=== PATIENT | female | born 1990 | race African-American/Black ===

== ENCOUNTER 2017-12-05 22:10 | Emergency (ER) | payer MEDICAID ==
[~2017-12-05] VITALS: Ht 149.9 cm; Wt 60.0 kg
[2017-12-05 22:12] VITALS: BP 117/66
[2017-12-05] MEDS ORDERED: HYDROcodone/APAP 5/325 TABLET ONE (22:37)
[2017-12-05 22:46] LABS: MICROSCOPIC AUTO
[2017-12-05 22:51] LABS: CULTURE INDICATED? YES
[2017-12-05] MEDS ORDERED: HYDROcodone/APAP 5/325 TABLET PO ONE (23:00)
[2017-12-05 23:02] LABS: MEAN CORPUSCULAR HEMOGLOBIN 23.3 pg (27.0-34.8); MEAN CORPUSCULAR HGB CONC 31.4 g/dL (32.4-35.8); MEAN CORPUSCULAR VOLUME 74.2 fL (80-100); PLATELET COUNT 409 x10^3/uL (130-400); RED BLOOD COUNT 4.47 x10^6/uL (3.82-5.3); RED CELL DISTRIBUTION WIDTH 18.6 % (9.6-15.2)
[2017-12-05 23:06] LABS: MD YES
[2017-12-05 23:09] LABS: ALBUMIN 3.6 g/dL (3.4-5.0); ANION GAP 7 mmol/L (5-15); CALCIUM 8.8 mg/dL (8.5-10.1); CHLORIDE 109 mmol/L (98-107)
[2017-12-05 23:14] LABS: CREATININE 0.72 mg/dL (0.55-1.02)
[2017-12-05 23:22] LABS: EOS#(MANUAL) 0.13 x10^3/uL (0.0-0.4); EOS% (MANUAL) 2 % (1-7); LYMPHS% (MANUAL) 46 % (22-44); MONOS#(MANUAL) 0.63 x10^3/uL (0.3-2.7); MONOS% (MANUAL) 10 % (2-9); SEG#(MANUAL) 2.65 x10^3/uL (1.8-6.8); SEGS% (MANUAL) 42 % (42-75)
[2017-12-05 23:23] LABS: ANISOCYTOSIS 1+; OVALOCYTES 1+
[2017-12-05 23:25] LABS: <PLATELET ESTIMATE> INCREASED; LARGE PLATELETS 1+; POLYCHROMASIA 1+
== END 2017-12-06 00:15 | disposition home or self-care (01) ==
LOC: ED 23:59
DX: K64.4 Residual hemorrhoidal skin tags (principal); K59.00 Constipation, unspecified; N30.01 Acute cystitis with hematuria
CPT/HCPCS: 36415; 74021; 80048; 81001; 82040; 84703; 85025; 87086; 99285